=== PATIENT | female | born 1975 | race Caucasian/White ===

== ENCOUNTER 2017-09-20 08:39 | Day surgery (SDC) | payer OTHER ==
--- NOTE | 2017-09-18 14:43 | HP ---
PREOPERATIVE HISTORY AND PHYSICAL: DATE OF SURGERY/ADMISSION: 09/20/17 [facility] ATTENDING SURGEON: Ameena Tavarez MD * (DICTATED BY JOSE LEONARDO) PROCEDURE: Right wrist carpal tunnel release. CHIEF COMPLAINT: Numbness and tingling, right hand. HISTORY OF PRESENT ILLNESS: This is a 42-year-old female who has been experiencing numbness and tingling in bilateral hands for a few months. She is right hand dominant. 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 She has trouble using utensils to style hair and she is also having trouble using a mouse. Symptoms awaken her from sleep and she has trouble holding on to things. Clinically, she has been diagnosed with right carpal tunnel syndrome and she has consented to proceed with surgical intervention at this time. PAST MEDICAL HISTORY: 1. Back pain. 2. Depression, anxiety. 3. Constipation. PAST SURGICAL HISTORY: 1. . 2. Left foot surgery. 3. Cholecystectomy. 4. Hysterectomy. CURRENT MEDICATIONS: 1. Bupropion HCl ER 150 mg twice a day. 2. Linzess p.r.n. ALLERGIES: AMOXICILLIN causes hives and vomiting. FAMILY MEDICAL HISTORY: Heart disease, hypertension, stroke, and rheumatoid arthritis. 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 She denies smoking and recreational drug use. She does not drink alcohol. REVIEW OF SYSTEMS: General: Negative for fevers, chills, or night sweats. No known anesthesia problems. HEENT: Negative for headache, lightheadedness, or syncopal episodes. Integumentary: Negative for abrasions, lesions, or open wounds. Cardiothoracic: Negative for hypertension, chest pain, palpitations, or edema. Pulmonary: Negative for shortness of breath with exertion, chronic cough, COPD. GI: Positive for constipation. Negative for nausea, vomiting, diarrhea, or GERD. : Negative for nocturia, urinary frequency, urgency, history of UTIs, or kidney problems. Musculoskeletal: Positive for current complaint. Negative for chronic or intermittent back pain or history of fractures. Neurological: Negative for history of seizure, stroke, or epilepsy. Positive for depression/anxiety. Endocrine: Negative for diabetes or thyroid issues. Hematologic: Negative for easy bruising, anemia, excessive bleeding, or history of DVT. Infectious Disease: Negative for history of MRSA, hepatitis C, HIV. PHYSICAL EXAMINATION GENERAL: Well-developed, well-nourished 42-year-old female in no acute distress. VITAL SIGNS: Height 5 feet 7 inches, weight 200 pounds. Pulse rate 70, blood pressure 97/65. HEENT: Normocephalic, atraumatic. Pupils are equal, round, and reactive to light and accommodation. Extraocular movements are intact. Throat is clear. NECK: Supple. No palpable lymph nodes. PULMONARY: Lungs are clear to auscultation bilaterally. No wheezes, rales, or rhonchi. CARDIOVASCULAR: Regular rate and rhythm. S1, S2. No murmurs, rubs, or gallops. No edema. ABDOMEN: Positive bowel sounds. Soft, nontender. NEUROLOGICAL: Alert and oriented x3. Cranial nerves II through XII are intact. Peripheral vascular, 2+ radial and ulnar pulses. Negative Jalil test. MUSCULOSKELETAL: On exam of her right hand, she has a positive median nerve compression test. There is no thenar wasting. She has weakness with thumb abduction. She has good range of motion and sensation is intact to light touch. IMPRESSION: Right carpal tunnel syndrome. PLAN: The patient is scheduled to undergo a right wrist carpal tunnel release with Dr. Tavarez on 09/20/17. She will return to the office 10 to 14 days postop for followup and suture removal. A prescription for Tylenol No. 3 was e- scribed to the patient's pharmacy for postoperative pain management. JOSE LEONARDO [id number]/[facility] #: [id number] RYAN
[~2017-09-20 08:39] MED LIST: Buffered Lidocaine 0.9% SYRIN* 5 ML/SYR SYRINGE INTRADERM ONE
[2017-09-20] MEDS ORDERED: Lidocaine 1% INJ* 10 MG/ML 30 ML SDV ONE (09:28)
[2017-09-20] MEDS ORDERED: Midazolam* 1 MG/ML 2 ML VIAL (2 MG) ONE (09:38)
[2017-09-20] MEDS ORDERED: fentaNYL* 50 MCG/ML 2 ML VIAL (100 MCG VIAL) ONE (09:38)
[2017-09-20] MEDS ORDERED: Lidocaine 2% PF * 5 ML VIAL ONE (10:09)
[2017-09-20] MEDS ORDERED: Propofol* 10 MG/ML 20 ML BTL IV PUSH ONE (10:09)
[2017-09-20] MEDS ORDERED: Ketorolac INJ* 30 MG/ML 1 ML VIAL ONE (10:09)
[2017-09-20] MEDS ORDERED: Acetaminophen TAB* 325 MG PO PRN (10:20)
[2017-09-20] MEDS ORDERED: DiMENhydriNATE IV* 50 MG/ML VIAL IV PUSH PRN (10:20)
[2017-09-20] MEDS ORDERED: PROCHLORPERAZINE INJ 5 MG/ML 2 ML VIAL IV PRN (10:20)
[2017-09-20] MEDS ORDERED: Ondansetron INJ* 2 MG/ML VIAL IV PRN (10:20)
[2017-09-20] MEDS ORDERED: Ondansetron INJ* 2 MG/ML VIAL ONE (10:42)
[2017-09-20 11:01] VITALS: BP 97/60
--- NOTE | 2017-09-20 23:29 | OP ---
DATE OF OPERATION: 09/20/17 [facility] DATE OF : 79 SURGEON: Ameena Tavarez MD NETWORK DESIGN ARCHITECT: JOSE Miner ANESTHESIOLOGIST: Dr. Zeng ANESTHESIA: Local MAC. PRE-OP DIAGNOSIS: Right carpal tunnel syndrome. POST-OP DIAGNOSIS: Right carpal tunnel syndrome. OPERATIVE PROCEDURE: Right carpal tunnel release. ESTIMATED BLOOD LOSS: Zero. TOURNIQUET TIME: 5 minutes. INDICATIONS: Susi is a 42-year-old female with numbness and tingling in the median nerve distribution of her right hand. She presents for right carpal tunnel release. DESCRIPTION OF PROCEDURE: The patient was brought to the operating room and was given a sedation anesthetic and a local infiltration of 10 cc of 1% plain lidocaine in the palm of her right hand. Skin of her right hand and forearm was prepped and draped in the usual sterile fashion. The hand and forearm were exsanguinated and the tourniquet elevated to 250 mmHg. A longitudinal incision was made in the palm in line with the ring finger. We dissected through the subcutaneous tissue sharply with a knife and then more proximally with the scissors. The transverse carpal ligament was divided with a knife and the scissors. The median nerve was carefully dissected away from the surrounding tissue and there was an area of moderate compression at the mid portion of the ligament. The wound was irrigated and the skin edges were reapproximated with 4 -0 nylon suture. The wound was dressed with Xeroform, 4x4, Webril, and an Cruz wrap. The patient tolerated the procedure well and was brought to the recovery room in good condition. [id number]/[facility] #: [id number] MTDD
== END 2017-09-20 11:10 | disposition home or self-care (01) ==
LOC: OREAST 08:39
PROVIDERS: ATTEND Orthopaedic Surgery
DX: G56.01 Carpal tunnel syndrome, right upper limb (principal); M54.5 Low back pain; F41.8 Other specified anxiety disorders; K59.00 Constipation, unspecified
CPT/HCPCS: J1885; J2250; J2405; J2704; J3010

== ENCOUNTER 2018-06-14 10:19 | Emergency (ER) | payer OTHER ==
[2018-06-14 10:45] VITALS: BP 113/70
--- NOTE | 2018-06-14 11:07 | UC ---
Complaint Female HPI - HPI Summary HPI Summary: 43-year-old female presents with 2-3 day history of dysuria, frequency, urinary urgency, and hematuria. Associated with some cloudy and foul-smelling urine. Denies fevers, chills, abdominal pain, back or flank pain, nausea or vomiting. Past surgical history significant for hysterectomy. - History Of Current Complaint Chief Complaint: UCGU Stated Complaint: UTI SYMPTOMS Time Seen by Provider: 06/14/18 10:55 Hx Obtained From: Patient Hx Last Menstrual Period: 2010 ?: No Onset/Duration: Gradual Onset, Lasting Days Severity Initially: Mild Severity Currently: Mild Pain Intensity: 6 Character: Burning Aggravating Factor(s): Urination Alleviating Factor(s): Nothing Associated Signs And Symptoms: Negative: Fever, Back Pain, Vaginal Bleeding/ Discharge, Nausea, Vomiting(# Of Episodes =), Genital Swelling, Genital Blisters - Allergies/Home Medications Allergies/Adverse Reactions: Allergies Allergy/AdvReac Type Severity Reaction Status Date / Time amoxicillin Allergy Intermediate Hives Verified 06/14/18 10:40 acetaminophen Allergy Hives Verified 06/14/18 10:40 [From Darvocet-N] propoxyphene Allergy Hives Verified 06/14/18 10:40 [From Darvocet-N] Home Medications: Home Medications FLUoxetine CAP* [Prozac CAP*] 60 mg QPM 06/14/18 [History Confirmed 06/14/18] PMH/Surg Hx/FS Hx/Imm Hx Previously Healthy: Yes Psychological History: Depression - Surgical History Surgical History: Yes Surgery Procedure, Year, and Place: GB removed; hysterectomy; C-sections x 3 [facility]. FOOT SURGERY; right carpal tunnel - Family History Known Family History: Positive: Cardiac Disease, Hypertension, Other - LUPUS - Social History Occupation: Employed Full-time Lives: With Family Alcohol Use: None Substance Use Type: None Smoking Status (MU): Never Smoked Tobacco Have You Smoked in the Last Year: No - Immunization History Most Recent Influenza Vaccination: no Most Recent Tetanus Shot: UTD Review of Systems Constitutional: Negative Skin: Negative Gastrointestinal: Negative Genitourinary: Dysuria, Hematuria, Frequency, Urgency Is Patient Immunocompromised?: No All Other Systems Reviewed And Are Negative: Yes Physical Exam Triage Information Reviewed: Yes Appearance: Well-Appearing, No Pain Distress, Well-Nourished Vital Signs: Initial Vital Signs Temp 98.2 F 06/14/18 10:42 Pulse 81 06/14/18 10:42 Resp 19 06/14/18 10:42 BP 113/70 06/14/18 10:42 Pulse Ox 99 06/14/18 10:42 Vital Signs Reviewed: Yes Respiratory: Positive: Chest non-tender, Lungs clear, Normal breath sounds Cardiovascular: Positive: RRR, No Murmur, Pulses Normal Abdomen Description: Positive: Nontender, No Organomegaly, Soft. Negative: CVA Tenderness (R), CVA Tenderness (L), Distended, Guarding Neurological: Positive: Alert Skin Exam: Normal Complaint Female Dx - Course Course Of Treatment: 43-year-old female with 2-3 day history of dysuria, frequency, urgency, and hematuria. Urinalysis shows 2+ protein, 3+ blood, 1+ bilirubin, 3+ leukocyte esterase. Urine culture was sent. Will treat with Macrobid twice a day 5 days and Pyridium 3 times a day 2 days. She is to follow primary care provider as needed. - Differential Dx/Diagnosis Provider Diagnoses: Acute urinary cystitis with hematuria Discharge - Sign-Out/Discharge Documenting (check all that apply): Patient Departure All imaging exams completed and their final reports reviewed: No Studies - Discharge Plan Condition: Stable Disposition: HOME Prescriptions: Nitrofurantoin Monohyd/M-Cryst [Macrobid 100 mg Capsule] 100 mg PO BID #10 cap Phenazopyridine TAB* [Pyridium 100 mg TAB*] 100 mg PO TID #6 tab Patient Education Materials: Urinary Tract Infection in Women (ED) Referrals: Clifford Humphrey DO [Primary Care Provider] - If Needed Additional Instructions: Your urine test in the clinic today is suggestive of a urinary tract infection. We will send your urine for culture to see if any bacteria grow out and make sure that the antibiotic treatment prescribed is appropriate to treat the infection. Will take 48-72 hours to get these results. We will call you if there is any need to change the treatment plan. Take Macrobid one tablet twice a day for 5 days. Use Pyridium 1 tablet every 8 hours for the next 2 days to help with the discomfort. Be aware that this medication will turn her urine orange color. Drink plenty of fluids. Follow-up with your primary Care provider as needed. - Billing Disposition and Condition Condition: STABLE Disposition: Home
== END 2018-06-14 11:27 | disposition home or self-care (01) ==
LOC: UCCORT 10:19
DX: N30.01 Acute cystitis with hematuria (principal); Z88.0 Allergy status to penicillin; Z88.5 Allergy status to narcotic agent
CPT/HCPCS: 81003; 87077; 87086; 87186; 99212; G0463

== ENCOUNTER 2019-01-14 16:42 | Emergency (ER) | payer OTHER ==
[2019-01-14] MEDS ORDERED: Aspirin 81 mg CHEW TAB* 81 MG TAB.CHEW PO ONE (17:03)
[2019-01-14] MEDS ORDERED: NS 0.9% 1000 ML** 1,000 ML IV ONE (17:03)
--- NOTE | 2019-01-14 17:24 | ED ---
HPI Chest Pain - HPI Summary HPI Summary: A 43 y/o F presents to ED referred by her PCP with sudden onset mid-sternal CP onset approx 1600. The pain is described as heavy and tight, and radiating to her L shoulder, collar bone and neck. At its worst, the pain was 7 out of 10, at its weakest, about 4 out of 10. She was at baseline prior to onset, and was sitting at her desk. Associated sx: severe nausea, SOB, dizziness, tunnel visions, bilat UE tingling, palpitations, flushed, muscles felt "tight", fatigue. She also had an episode of LLE numbness posteriorly en route to ED. Denies abd pain, vomiting, tinnitus, fever, chills, FOREMAN, pedal edema. Aggravating factors: deep breaths. No previous similar episodes, she has had panic attacks in the past and these sx are not similar. Medications: anti- depressants, Xanax, Adderall which she started a month ago. Denies HTN. She sees her PCP monthly. FHx: maternal grandfather (multiple MO, starting under 50 y/o); mother: HTN. - History of Current Complaint Chief Complaint: EDChestPainROMI Time Seen by Provider: 01/14/19 17:12 Hx Obtained From: Patient Hx Last Menstrual Period: 2010 Onset/Duration: Started Hours Ago - ~ 1600, Atraumatic, Still Present - but improved Timing: Constant, Lasting Hours Initial Severity: Moderate Current Severity: Moderate Pain Intensity: 4 - at its weakest Pain Scale Used: 0-10 Numeric Chest Pain Location: Mid Sternal Chest Pain Radiates: Yes Chest Pain Radiates To:: Shoulder, Neck, Other - collarbone Character: Heaviness, Tightness Associated Signs and Symptoms: Positive: Vision Changes - "tunnel vision", Numbness - LLE, Tingling - bilat UE, Dizziness, Shortness of Breath, Nausea, Palpitations, Other: - pos: flushed, muscles felt "tight", fatigue. neg: tinnitus, pedal edema.. Negative: Headaches, Fever, Chills, Abdominal Pain, Vomiting - Allergy/Home Medications Allergies/Adverse Reactions: Allergies Allergy/AdvReac Type Severity Reaction Status Date / Time amoxicillin Allergy Intermediate Hives Verified 09/26/18 08:49 acetaminophen Allergy Hives Verified 09/26/18 08:49 [From Darvocet-N] propoxyphene Allergy Hives Verified 09/26/18 08:49 [From Darvocet-N] PMH/Surg Hx/FS Hx/Imm Hx Previously Healthy: No Cardiovascular History: Denies: Hx Hypertension Sensory History: Reports: Hx Contacts or Glasses - GLASSES Denies: Hx Hearing Aid Opthamlomology History: Reports: Hx Contacts or Glasses - GLASSES Psychiatric History: Reports: Hx Anxiety, Hx Attention Deficit Hyperactivity Disorder, Hx Depression - ON MEDICATION - Surgical History Surgery Procedure, Year, and Place: GB removed; hysterectomy; C-sections x 3 [facility]. FOOT SURGERY; right carpal tunnel Hx Anesthesia Reactions: No Infectious Disease History: No Infectious Disease History: Denies: Traveled Outside the [place] in Last 30 Days - Family History Known Family History: Positive: Cardiac Disease, Hypertension, Other - LUPUS Family History: maternal grandfather: multiple MO, starting under 50 y/o. mother: HTN. - Social History Occupation: Employed Full-time Lives: Alone Alcohol Use: None Hx Substance Use: No Substance Use Type: Reports: None Hx Tobacco Use: No Smoking Status (MU): Never Smoked Tobacco Have You Smoked in the Last Year: No Review of Systems Positive: Fatigue, Other - pos: flushed. Negative: Fever, Chills Eyes: Other - pos: tunnel vision Negative: Other - neg: tinnitus Positive: Palpitations, Chest Pain Positive: Shortness Of Breath Positive: Nausea. Negative: Abdominal Pain Musculoskeletal: Other - pos: muscles felt "tight" Negative: Edema Neurological: Other - pos: dizziness Positive: Numbness - numbness to LLE; tingling to bilat UE. Negative: Headache All Other Systems Reviewed And Are Negative: Yes Physical Exam - Summary Physical Exam Summary: Appearance: Well appearing, no pain distress Skin: warm, dry, reflects adequate perfusion Head/face: normal Eyes: EOMI, JULIO C ENT: mucous membranes moist Neck: supple, non-tender Respiratory: CTA, breath sounds present Cardiovascular: RRR, pulses symmetrical. Subjective discomfort in L chest and L shoulder with deep breathing. Abdomen: non-tender, soft Bowel Sounds: present Musculoskeletal: normal, strength/ROM intact Neuro: normal, sensory motor intact, A&Ox3 Triage Information Reviewed: Yes Vital Signs On Initial Exam: Initial Vitals Temp Pulse Resp BP Pulse Ox 98.5 F 88 17 130/71 98 01/14/19 16:43 01/14/19 16:43 01/14/19 16:43 01/14/19 16:43 01/14/19 16:43 Vital Signs Reviewed: Yes Diagnostics - Vital Signs Vital Signs Temp Pulse Resp BP Pulse Ox 01/14/19 16:43 98.5 F 88 17 130/71 98 - Laboratory Result Diagrams: 01/14/19 17:35 01/14/19 17:35 Lab Statement: Any lab studies that have been ordered have been reviewed, and results considered in the medical decision making process. - Radiology CXR Radiology Interpretation Completed By: Radiologist Summary of Radiographic Findings: IMPRESSION: NO EVIDENCE FOR ACUTE DISEASE. ED provider has reviewed this report. - EKG 1650 Cardiac Rate: NL - 84 bpm EKG Rhythm: Sinus Rhythm ST Segment: Normal Summary of EKG Findings: Nml axis, nml interval. Re-Evaluation - Re-Evaluation 1 Re-Evaluation Time: 18:35 Change: Improved Comment: Pt is feeling better and requesting DC. Chest Pain Course/Dx - Course Course Of Treatment: olena's notes reviewed. Patient with sharp stabbing pain radiating to her left shoulder with negative d-dimer and troponin/EKG that are unremarkable. Some relief with Pepcid and Toradol. Vitals are normal. Treat symptomatically and close follow-up with primary care physician. - Chest Pain Differential Diagnosis/HQI/PQRI: Acute MO, ACS, CHF, Chest Wall, GI Disease, Lower Respiratory Infection, Pulmonary Embolism - Diagnoses Provider Diagnoses: Atypical chest pain, Chest wall pain Discharge - Sign-Out/Discharge Documenting (check all that apply): Patient Departure Patient Received Moderate/Deep Sedation with Procedure: No - Discharge Plan Condition: Stable Disposition: HOME Prescriptions: Famotidine TAB* [Pepcid 20 MG TAB*] 20 mg PO BID #30 tab Patient Education Materials: Chest Pain (ED) Referrals: Clifford Humphrey DO [Primary Care Provider] - Additional Instructions: Call your doctor first thing in the morning to schedule prompt follow-up. No heavy exertion. Advil or Aleve for chest discomfort. If this makes it worse stop and use Pepcid and Maalox. Return with difficulty breathing, worse, new symptoms or other concerns. - Billing Disposition and Condition Condition: STABLE Disposition: Home - Attestation Statements Document Initiated by Izzy: Yes Documenting Scribe: Miguelangel Kemp Provider For Whom Izzy is Documenting (Include Credential): Dr. Reynaldo Jennings MD Scribe Attestation: Miguelangel Jaime, scribed for Dr. Reynaldo Jennings MD on 01/14/19 at 1952. Scribe Documentation Reviewed: Yes Provider Attestation: The documentation as recorded by the izzy, Miguelangel Kemp accurately reflects the service I personally performed and the decisions made by me, Dr. Reynaldo Jennings MD Status of Scribe Document: Viewed
[2019-01-14] MEDS ORDERED: Ketorolac INJ* 30 MG/ML 1 ML VIAL IV PUSH ONE (17:36)
[2019-01-14] MEDS ORDERED: Famotidine TAB* 20 MG PO ONE (17:36)
[2019-01-14 17:49] LABS: ABS Basophils 0 10^3/ul (0-0.2); ABS Eosinophils 0.1 10^3/ul (0-0.6); ABS Monocytes 0.6 10^3/ul (0-0.8); ABS Neutrophils 6.2 10^3/ul (1.5-7.7); ABS Nucleated RBC 0 10^3/ul; Eosinophil % 0.8 %; Hematocrit 45 % (33-41); Hemoglobin 15.5 g/dL (12.0-16.0); Mean Corpuscular HGB Conc 35 g/dL (31-36); Mean Corpuscular Hemoglobin 31 pg (27-31); Mean Corpuscular Volume 90 fL (80-97); Mean Platelet Volume 8.7 fL (7.4-10.4); Nucleated Red Blood Cells % 0.2; Platelet Count 125 10^3/uL (150-450); Red Blood Count 4.99 10^6 /uL (3.70-4.87); Red Cell Distribution Width 12 % (10.5-15); White Blood Count 7.9 10^3/uL (3.5-10.8)
[2019-01-14 18:07] LABS: ALT 26 U/L (7-52); AST 31 U/L (13-39); Albumin/Globulin Ratio 1.3 (1-3); Alkaline Phosphatase 85 U/L (34-104); Anion Gap 6 mmol/L (2-11); BUN/Creatinine Ratio 12.6 (8-20); Blood Urea Nitrogen 11 mg/dL (6-24); CO2 Carbon Dioxide 27 mmol/L (22-32); Calcium 9.2 mg/dL (8.6-10.3); Chloride 105 mmol/L (101-111); EGFR African American 86.8 (>60); EGFR Non-African American 71.8 (>60); Globulin 3.1 g/dL (2-4); Glucose 92 mg/dL (70-100); Potassium 3.8 mmol/L (3.5-5.0); Sodium 138 mmol/L (135-145); Total Protein 7.1 g/dL (6.4-8.9)
[2019-01-14 18:08] LABS: INR 0.95 (0.77-1.02)
[2019-01-14 18:12] LABS: HCG Pregnancy < 0.60 mIU/mL
[2019-01-14 18:53] VITALS: BP 108/65
== END 2019-01-14 18:53 | disposition home or self-care (01) ==
LOC: ED 16:42
DX: R07.89 Other chest pain (principal); R94.31 Abnormal electrocardiogram [ECG] [EKG]; F41.9 Anxiety disorder, unspecified; F90.9 Attention-deficit hyperactivity disorder, unspecified type; F32.9 Major depressive disorder, single episode, unspecified; Z88.3 Allergy status to other anti-infective agents; Z88.8 Allergy status to other drugs, medicaments and biological substances; Z79.899 Other long term (current) drug therapy
CPT/HCPCS: 36415; 71045; 80053; 83605; 83880; 84484; 84702; 85025; 85379; 85610; 93005; 96361; 96374; 99283; A9270-GY; J1885

== ENCOUNTER 2020-02-06 15:47 | Emergency (ER) | payer OTHER ==
--- OUTSIDE RECORDS SUMMARY | 2020-02-06 16:09 | XMS REPORT | Continuity of Care Document ---
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 Problems Active Problems Provider Date Recurrent major depressive episodes Raquel Garcia PA Onset: 10/10/2011 Premenstrual tension syndrome Onset: 01/03/2005 Moderate major depression, single episode Onset: 01/03/2005 Low back pain Onset: 01/03/2005 Social History Type Date Description Comments Sex Unknown ETOH Use Currently consumes alcohol Tobacco Use Start: Unknown Patient has never smoked Smoking Status Reviewed: 01/12/20 Patient has never smoked Allergies, Adverse Reactions, Alerts Active Allergies Reaction Severity Comments Date Amoxicillin 01/02/2005 Medications Active Medications SIG Qnty Indications Ordering Date Provider Phenazopyridine HCL 1 tab by mouth 6tabs N30.91 Lisa Diez, 01/12/2020 200mg three times a MD Tablets day for 2 days Sulfamethoxazole/Trimeth 1 tablet by 14tabs N30.91 Lisa Diez, 2019 oprim DS mouth twice MD 800-160mg Tablets daily for 7 days Amphetamine-Dextroamphet 1 by mouth 30caps Clifford Humphrey, 06/23/2019 ER every day DO 25mg Caps ER 24HR Bupropion Hydrochloride Take One Tablet 90tabs F33.9 Clifford Humphrey, 02/18 ER (XL) By Mouth Every DO 150mg Tablets ER 24HR Day F41.1 Alprazolam 1 by mouth twice a 30tabs F41.1 Clifford Humphrey, 11/07/2018 0.25mg Tablets day as needed anxiety Fluvoxamine Maleate Take One Tablet By 30tabs Clifford Humphrye, DO 2017 100mg Mouth Every Day AT Tablets Bedtime Immunizations CPT Code Status Date Vaccine Lot # [id number] Given 09/09/2019 Influenza Vac, Quadrivalent, Split, 0.5mL Dosage, [place] Use [id number] Given 06/10/2019 Tdap (Adacel) Ages 7 And Above Only [id number] Given 09/26/2012 MMR Virus Immunization [id number] Given 08/18/2008 Tdap (Adacel) Ages 7 And Above Only [id number] Refused 06/30/2018 Afluria Or Fluvirin Flu Vac Intramuscular Vital Signs Date Vital Result Comment 10/12/2019 2:50pm Weight 204.00 lb Heart Rate 72 /min BP Systolic 104 mmHg BP Diastolic 68 mmHg Respiratory Rate 17 /min Height 67.5 inches 5'7.50" BMI (Body Mass Index) 31.5 kg/m2 06/10/2019 2:34pm Weight 200.00 lb Heart Rate 84 /min BP Systolic 128 mmHg BP Diastolic 78 mmHg Respiratory Rate 17 /min Height 67.5 inches 5'7.50" BMI (Body Mass Index) 30.9 kg/m2 Results Test Acquired Date Facility Test Result H/L Range Note Laboratory test 01/12/2020 [place] [facility]rine Microbiology res Abnormal 1 finding Culture <SEE NOTE> 1 Microbiology results SOURCE Clean Catch Midstream COLONY COUNT >100,000 CFU/ML PRELIMINARY RESULT Gram Negative Jaxon. ID & Sensitivity to Follow. 01/13/2020 3:34 PM FINAL RESULT Escherichia coli (Isolate 1) Sensitivity Analysis Isolate 1 --------- AMIKACIN <=16 S AMOXICILLIN/CLAVULANATE 16/8 I AMPICILLIN >16 R AMPICILLIN/SULBACTAM >16/8 R CEFAZOLIN 4 S CEFEPIME <=8 S CEFOTAXIME <=2 S CEFTRIAXONE <=1 S CEFUROXIME 8 S CIPROFLOXACIN <=1 S ERTAPENEM <=0.5 S GENTAMYCIN <=2 S IMIPENEM <=1 S LEVOFLOXACIN <=2 S NITROFURANTOIN <=32 S PIPERACILLIN/TAZOBACTAM <=16 S TETRACYCLINE <=4 S TOBRAMYCIN <=4 S TRIMETHOPRIM/SULFAMETHOXAZ <=2/38 S S=Sensitive;I=Indeterminate;R=Resistant Procedures Description No Information Available Medical Devices Description No Information Available Encounters Type Date Location Provider Dx Diagnosis Office Visit 01/12/2020 [facility] Irlanda Bae NP N30.91 Cystitis, unspecified 2:30p with hematuria Office Visit 10/12/2019 [facility] Clifford Humphrey DO F33.9 Major depressive 2:45p disorder, recurrent, unspecified F42.9 Obsessive-compulsive disorder, unspecified F41.1 Generalized anxiety disorder G47.00 Insomnia, unspecified R41.840 Attention and concentration deficit E66.9 Obesity, unspecified R53.83 Other fatigue Z68.31 Body mass index (BMI) 31.0-31.9, adult Assessments Date Code Description Provider 01/12/2020 N30.91 Cystitis, unspecified with hematuria Irlanda Bae NP 01/12/2020 N30.91 Cystitis, unspecified with hematuria [facility] 10/12/2019 F33.9 Major depressive disorder, recurrent, Clifford Humphrey DO unspecified 10/12/2019 F42.9 Obsessive-compulsive disorder, unspecified Clifford Humphrey DO 10/12/2019 F41.1 Generalized anxiety disorder Clifford Humphrey DO 10/12/2019 G47.00 Insomnia, unspecified Clifford Humphrey DO 10/12/2019 R41.840 Attention and concentration deficit Clifford Humphrey DO 10/12/2019 E66.9 Obesity, unspecified Clifford Humphrey DO 10/12/2019 R53.83 Other fatigue Clifford Humphrey DO 10/12/2019 Z68.31 Body mass index (BMI) 31.0-31.9, adult Clifford Humphrey DO Plan of Treatment Future Appointment(s):03/28/2020 8:50 am - Schedule, Laboratory at [facility]2019 8:45 am - Clifford Humphrey, at [facility]01/12/2020 - Irlanda Bae NPN30.91 Cystitis, unspecified with hematuriaNew Medication:Phenazopyridine HCL 200 mg - 1 tab by mouth three times a day for 2 daysSulfamethoxazole/Trimethoprim DS 800- 160 mg - 1 tablet by mouth twice daily for 7 daysComments:Treat empirically with abx Tavon culture with changes in treatment if indicated by resultsDiscussed [id number] teaching, wearing cotton undergarments and avoiding tight fitting clothing, post-coital voidingFollow up:As needed Functional Status Description No Information Available Mental Status Description No Information Available Referrals Description No Information Available
--- OUTSIDE RECORDS SUMMARY | 2020-02-06 16:09 | XMS REPORT | Continuity of Care Document ---
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 Data Center Operator [phone] Counseling Problems Active Problems Provider Date Recurrent [...] by mouth twice a 30tabs F41.1 Clifford Humphrey DO 11/07/2018 0.25mg Tablets day as needed anxiety Fluvoxamine Maleate Take One Tablet By 30tabs Clifford Humphrey DO 2017 100mg Mouth Every Day AT Tablets Bedtime Immunizations CPT Code Status Date Vaccine Lot # [id number] Given 09/09/2019 Influenza Vac, Quadrivalent, Split, 0.5mL Dosage, Im Use [id number] Given 06/10/2019 Tdap (Adacel) Ages 7 And Above Only [id number] Given 09/26/2012 MMR Virus Immunization [id number] Given 08/18/2008 Tdap (Adacel) Ages 7 And Above Only [id number] Refused 06/30/2018 Afluria Or Fluvirin Flu Vac [...] Result H/L Range Note Laboratory test 01/12/2020 [facility] Urine Microbiology res Abnormal 1 finding Culture <SEE NOTE> 1 Microbiology results SOURCE Clean Catch Midstream COLONY COUNT >100,000 CFU/ML PRELIMINARY RESULT Gram Negative Jaxon. ID & Sensitivity to Follow. 01/13/2020 3:34 PM Procedures Description No Information Available Medical Devices Description No Information Available Encounters Type Date Location Provider Dx Diagnosis Office Visit 01/12/2020 [facility] Irlanda Bae NP N30.91 Cystitis, unspecified 2:30p with hematuria Office Visit 10/12/2019 [facility] Clifford Humphrey DO F33.9 Major depressive 2:45p disorder, recurrent, unspecified F42.9 Obsessive-compulsive disorder, unspecified F41.1 Generalized anxiety disorder G47.00 Insomnia, unspecified R41.840 Attention and concentration deficit E66.9 Obesity, unspecified R53.83 Other fatigue Z68.31 Body mass index (BMI) 31.0-31.9, adult Assessments Date Code Description Provider 01/12/2020 N30.91 Cystitis, unspecified with hematuria Irlanda Bae NP 10/12/2019 F33.9 Major depressive disorder, recurrent, Clifford Humphrey DO unspecified 10/12/2019 F42.9 Obsessive-compulsive disorder, unspecified Clifford Humphrey, DO 10/12/2019 F41.1 Generalized anxiety disorder Clifford Humphrey, DO 10/12/2019 G47.00 Insomnia, unspecified Clifford Humphrey, DO 10/12/2019 R41.840 Attention and concentration deficit Clifford Humphrey, 10/12/2019 E66.9 Obesity, unspecified Clifford Humphrey, DO 10/12/2019 R53.83 Other fatigue Clifford Humphrey, 10/12/2019 Z68.31 Body mass index (BMI) 31.0-31.9, adult Clifford Humphrey DO Plan of Treatment Future Appointment(s):03/28/2020 8:50 am - Schedule, Laboratory at [facility]2019 8:45 am - Clifford Humphrey DO at [facility]01/12/2020 - Irlanda Bae NPN30.91 Cystitis, unspecified with hematuriaNew Medication:Phenazopyridine HCL 200 mg - 1 tab by mouth three times a day for 2 daysSulfamethoxazole/Trimethoprim DS 800- 160 mg - 1 tablet by mouth twice daily for 7 daysComments:Treat empirically with abx nowSend culture with changes in treatment if indicated by resultsDiscussed ibbro-oz-rprs teaching, wearing cotton undergarments and avoiding tight fitting clothing, post-coital voidingFollow up:As needed Functional Status Description No Information Available Mental Status Description No Information Available Referrals Description No Information Available
[2020-02-06 16:17] VITALS: BP 121/78
--- NOTE | 2020-02-06 16:53 | UC ---
Lower Extremity/Ankle HPI - HPI Summary HPI Summary: 44-year-old female who twisted her right ankle today when she was chasing her dog down an incline. She complains of pain to the lateral aspect. She states after the injury she was unable to walk. She denies any other injury - History of Current Complaint Chief Complaint: UCLowerExtremity Stated Complaint: R ANKLE INJ Time Seen by Provider: 02/06/20 16:22 Hx Obtained From: Patient Hx Last Menstrual Period: 2010 ?: No Onset/Duration: Sudden Onset, Lasting Minutes Severity Initially: Moderate Severity Currently: Moderate Pain Intensity: 10 Aggravating Factor(s): Standing, Ambulation Alleviating Factor(s): Rest Able to Bear Weight: No - Allergies/Home Medications Allergies/Adverse Reactions: Allergies Allergy/AdvReac Type Severity Reaction Status Date / Time amoxicillin Allergy Intermediate Hives Verified 02/06/20 16:17 acetaminophen Allergy Hives Verified 02/06/20 16:17 [From Darvocet-N] propoxyphene Allergy Hives Verified 02/06/20 16:17 [From Darvocet-N] Home Medications: Home Medications buPROPion SR TAB* [Wellbutrin SR TAB*] 150 mg PO QPM 06/30/14 [History Confirmed 02/06/20] FLUoxetine CAP* [Prozac CAP*] 60 mg PO QPM 06/14/18 [History Confirmed 02/06/20] PMH/Surg Hx/FS Hx/Imm Hx Previously Healthy: Yes - Surgical History Surgical History: Yes Surgery Procedure, Year, and Place: GB removed; hysterectomy; C-sections x 3 [facility]. FOOT SURGERY; right carpal tunnel - Family History Known Family History: Positive: Cardiac Disease, Hypertension, Other - LUPUS Family History: maternal grandfather: multiple MS, starting under 50 y/o. mother: HTN. - Social History Lives: With Family Alcohol Use: None Substance Use Type: None Smoking Status (MU): Never Smoked Tobacco Have You Smoked in the Last Year: No - Immunization History Most Recent Influenza Vaccination: no Most Recent Tetanus Shot: UTD Review of Systems All Other Systems Reviewed And Are Negative: Yes Musculoskeletal: Positive: Decreased ROM, Other: - Pain and swelling to the lateral right ankle. Physical Exam Triage Information Reviewed: Yes Appearance: Well-Appearing, No Pain Distress, Well-Nourished Vital Signs: Initial Vital Signs Temp 98.0 F 02/06/20 16:13 Pulse 88 02/06/20 16:13 Resp 18 02/06/20 16:13 BP 121/78 02/06/20 16:13 Pulse Ox 99 02/06/20 16:13 Vital Signs Reviewed: Yes Musculoskeletal: Positive: Other: - Peripheral pulses, neuro sensation and capillary refill, Achilles is intact, mild swelling to the lateral right ankle with tenderness on palpation. The base of the fifth and first metatarsals are nontender. Neurological Exam: Normal Psychological Exam: Normal Lower Extremity Course/Dx - Course Course Of Treatment: Right ankle x-ray:FINDINGS: BONE DENSITY: Normal. BONES: There is no displaced fracture. JOINTS: There is no arthropathy. ALIGNMENT: There is no dislocation. SOFT TISSUES: Unremarkable. OTHER FINDINGS: None. IMPRESSION: NO ACUTE OSSEOUS INJURY. IF SYMPTOMS PERSIST, RECOMMEND REPEAT IMAGING. An Cruz bandage was applied. The patient was able to put her ankle and foot through better range of motion after the negative x-ray. The patient was given crutches. - Differential Dx/Diagnosis Provider Diagnosis: Right ankle sprain Discharge ED - Sign-Out/Discharge Documenting (check all that apply): Patient Departure All imaging exams completed and their final reports reviewed: Yes - Discharge Plan Condition: Good Disposition: HOME Patient Education Materials: Ankle Sprain (DC) Referrals: Xander Lion MD [Medical Doctor] - Clifford Humphrey DO [Primary Care Provider] - Additional Instructions: May ambulate as pain permits. Over the next 2 or 3 days elevate as much as possible, apply ice intermittently, on 20 minutes off 20 minutes. Use the Cruz bandage for compression to keep the swelling down. If you have no improvement or if you feel like your ankle is going to give out when you do bear weight then you're to definitely follow-up with the orthopedist. - Billing Disposition and Condition Condition: GOOD Disposition: Home
== END 2020-02-06 17:18 | disposition home or self-care (01) ==
LOC: UCCORT 15:47
DX: S93.401A Sprain of unspecified ligament of right ankle, initial encounter (principal); X50.1XXA Overexertion from prolonged static or awkward postures, initial encounter; Y93.02 Activity, running; Y92.828 Other wilderness area as the place of occurrence of the external cause; Z88.6 Allergy status to analgesic agent; Z88.0 Allergy status to penicillin; Z88.8 Allergy status to other drugs, medicaments and biological substances
CPT/HCPCS: 99212; G0463